=== PATIENT | male | born 1940 | race Caucasian/White ===

== ENCOUNTER 2018-11-17 16:24 | Emergency (ER) | payer OTHER, MEDICAID ==
[~2018-11-17] VITALS: Ht 170.2 cm; Wt 68.0 kg
[2018-11-17] MEDS ORDERED: ACETAMINOPHEN 325MG TABLET PO STA (16:50)
[2018-11-17] MEDS ORDERED: VANCOMYCIN 1 G PREMIX 200 ML IV ONE (17:00)
[2018-11-17] MEDS ORDERED: PIPERACILLIN/TAZ 3.375G PREMIX 50 ML IV ONE (17:00)
[2018-11-17] MEDS ORDERED: SODIUM CHLORIDE 0.9% 1000ML BAG (SEPSIS BOLUS) IV ONE (17:00)
[2018-11-17 17:30] LABS: BASOPHILS % 0.7 % (0.0-2.0); EOSINOPHILS % 0.2 % (0.0-5.0); HEMATOCRIT. 42.7 % (42.0-52.0); HEMOGLOBIN. 14.7 g/dL (14.0-18.0); LYMPHOCYTES % 9.5 % (20.0-50.0); MEAN CORPUSCULAR HEMOGLOBIN 32.8 pg (28.0-32.0); MEAN CORPUSCULAR VOLUME 94.9 fL (80.0-94.0); MONOCYTES % 6.5 % (2.0-8.0); NEUTROPHILS % 83.1 % (40.0-76.0); PLATELET 214 x1000/uL (130-400); RED CELL DISTRIBUTION WIDTH 14.5 % (11.6-14.6)
[2018-11-17 17:35] LABS: CHLORIDE 101 mEq/L (98-107)
[2018-11-17 20:54] LABS: CLARITY URINE CLEAR (CLEAR); COLOR URINE YELLOW (YELLOW); KETONES URINE NEGATIVE (NEGATIVE); LEUKOCYTE ESTERASE URINE TRACE (NEGATIVE); NITRITE URINE NEGATIVE (NEGATIVE); OCCULT BLOOD URINE 1+ (NEGATIVE); PROTEIN URINE 1+ (NEGATIVE); SPECIFIC GRAVITY URINE 1.021 (1.005-1.030); UROBILINOGEN URINE 0.2 E.U./dL (0.2-1.0)
[2018-11-17] MEDS ORDERED: VANCOMYCIN 1 G PREMIX 200 ML IV NR (22:45)
[2018-11-17] MEDS ORDERED: ACETAMINOPHEN 325MG TABLET PO NR (22:45)
[2018-11-17] MEDS ORDERED: SODIUM CHLORIDE 0.9% 1000ML BAG (SEPSIS BOLUS) IV NR (22:45)
[2018-11-17] MEDS ORDERED: PIPERACILLIN/TAZ 3.375G PREMIX 50 ML IV NR (22:45)
[2018-11-18 00:23] VITALS: BP 125/50
== END 2018-11-18 00:38 | disposition short-term general hospital (02) ==
LOC: ER 16:30 → CANBEDREQ 23:48 → ER 11-18 00:38
DX: N30.00 Acute cystitis without hematuria (principal); M25.551 Pain in right hip; M25.552 Pain in left hip; E11.9 Type 2 diabetes mellitus without complications
CPT/HCPCS: 36415; 70450; 71045; 72170; 80053; 81003; 82962; 83605; 85025; 87040; 87804; 93005; 96365; 96368; 99285; J2543; J3370; J7030